=== PATIENT | female | born 1975 | race Caucasian/White ===

== ENCOUNTER 2019-01-27 10:28 | Emergency (ER) | payer OTHER ==
--- OUTSIDE RECORDS SUMMARY | 2019-01-27 10:30 | XMS REPORT | Summary of Care ---
:1975 Author Organization [facility] Cardiology [facility] Address [address] [place] [address]- Encounter HQ Godfreyr_luisa(FIN) [id number] Date(s): 10/25/18 - 10/25/18 [facility] [address] [place] [address]- [phone] Discharge Disposition: Home or Self Care Attending Physician: Andrzej Delarosa MD Vital Signs Most recent to oldest [Reference Range]: 1 Height 162.56 cm (10/25/18 4:10 PM) Blood Pressure [90-140/60-90 mmHg] 112/74 mmHg (10/25/18 4:10 PM) Weight 81.534 kg (10/25/18 4:10 PM) Body Mass Index 30.85 m2 (10/25/18 4:10 PM) Problem List Condition Effective Dates Status Health Status Informant Simple obesity(Confirmed) Active Allergies, Adverse Reactions, Alerts Substance Reaction Severity Status codeine Vomiting Severe Active Rash Medications carvedilol 3.125 mg, PO, BID Start Date: 10/25/18 Status: OrderedCo-Q10 30 mg, PO, Daily Start Date: 10/25/18 Status: OrderedFish Oil 1,000 mg, PO, Daily Start Date: 10/25/18 Status: Orderedfurosemide 40 mg, PO, Daily Start Date: 10/25/18 Status: Orderedhydrochlorothiazide-olmesartan 12.5 mg-20 mg oral tablet 0.5 tab, PO, Daily Start Date: 10/25/18 Status: Orderedlevothyroxine 75 microgram, PO, Daily Start Date: 10/25/18 Status: Orderedmagnesium oxide PO, Daily Start Date: 10/25/18 Status: OrderedmetFORMIN 1,000 mg, PO, Daily Start Date: 10/25/18 Status: Orderedomeprazole 20 mg, PO, Daily Start Date: 10/25/18 Status: OrderedRequip 4 mg, PO, Daily Start Date: 10/25/18 Status: OrderedSudafed 30 mg, PO, Daily Start Date: 10/25/18 Status: OrderedSynjardy XR 12.5 mg-1000 mg oral tablet, extended release 1 tab, PO, Daily Start Date: 10/25/18 Status: OrderedVitamin D3 1,000 IntlUnit, PO, Daily Start Date: 10/25/18 Status: OrderedZyrTEC 10 mg, PO, Daily Start Date: 10/25/18 Status: Ordered Results No data available for this section Immunizations No data available for this section Procedures Procedure Date Related Diagnosis Body Site Status Echocardiogram 06/2017 Completed Stress testing using 2016 Completed pharmacologic-induced stress Social History Social History Type Response Substance Abuse Use: None. Exercise Exercise duration: 15. Exercise frequency: 1-2 times/week. Alcohol Current, Type Liquor. Frequency: 1-2 times per week. Smoking Status Never smoker; Exposure to Tobacco Smoke None; Cigarette Smoking Last 365 Days No; Reg Smoking Cessation Counseling No entered on: 10/25/18 Assessment and Plan No data available for this section
--- OUTSIDE RECORDS SUMMARY | 2019-01-27 10:30 | XMS REPORT | Summary of Care ---
:1975 Author Organization [facility] Address [address] [place] [address]- Encounter HQ Encntr_luisa(FIN) [id number] Date(s): 01/02/19 - 01/02/[address] Professional Services provided by [facility] [place] [address]- Discharge Disposition: Home or Self Care Attending Physician: Andrzej Delarosa MD Referring Physician: Andrzej Delarosa MD Vital Signs Most recent to oldest [Reference Range]: 1 2 Height 165.1 cm (01/02/19 1:31 PM) Blood Pressure [90-140/60-90 mmHg] 91/56 mmHg 99/71 mmHg (01/02/19 2:26 PM) (01/02/19 2:00 PM) Respiratory Rate [14-20 BRMIN] 18 BRMIN 16 BRMIN (01/02/19 2:26 PM) (01/02/19 2:00 PM) Peripheral Pulse Rate [60-100 bpm] 85 bpm 82 bpm (01/02/19 2:26 PM) (01/02/19 2:00 PM) Weight 79.545 kg (01/02/19 1:31 PM) Body Mass Index 29.18 m2 (01/02/19 1:31 PM) Problem List Condition Effective Dates Status Health Status Informant Cardiomyopathy(Confirmed) Active Allergies, Adverse Reactions, Alerts Substance Reaction Severity Status codeine Vomiting Severe Active Rash Medications No data available for this section Results Most recent to oldest [Reference Range]: 1 eGFR 78 mL/min/1.73m2 1 *NA* (01/02/19 1:56 PM) POC Creatinine [0.5-1.4 mg/dL] 0.9 mg/dL (01/02/19 1:56 PM) 1Result Comment: The eGFR is calculated using the CKD-EPI formula. In most young , healthy individualsthe eGFR will be >90 mL/min/1.73m2. The eGFR declines with age. An eGFR of 60-89 may be normal insome populations, particularly the elderly, for whom the CKD-EPI formula has not been extensively validated. Use of the eGFR is not recommended in the following populations: Individuals with unstable creatinine concentrations, including patients and those with serious co-morbid conditions. Patients with extremes in muscle mass or diet. The data above are obtained from the National Kidney Disease Education Program ( NKDEP) which additionally recommends that when the eGFR is used in patients with extremes of body mass index for purposesof drug dosing, the eGFR should be multiplied by the estimated BMI. Immunizations No data available for this section Procedures Procedure Date Related Diagnosis Body Site Status Echocardiogram 06/2017 Completed Stress testing using 2016 Completed pharmacologic-induced stress Social History Social History Type Response Alcohol Current, Type Liquor. Frequency: 1-2 times per week. Exercise Exercise duration: 15. Exercise frequency: 1-2 times/week. Substance Abuse Use: None. Smoking Status Never smoker; Exposure to Tobacco Smoke None; Cigarette Smoking Last 365 Days No; Reg Smoking Cessation Counseling No entered on: 12/18/18 Assessment and Plan No data available for this section
--- OUTSIDE RECORDS SUMMARY | 2019-01-27 10:30 | XMS REPORT | Summary of Care ---
:1975 Author Organization [facility] Cardiology [facility] Address [address], [address] [place] [address]- Encounter HQ Encntr_alias(FIN) [id number] Date(s): 10/25/18 - 10/25/18 [facility] [address] [place] [address]- [phone] Attending Physician: Andrzej Delarosa MD Vital Signs No data available for this section Problem List Condition Effective Dates Status Health Status Informant Simple obesity(Confirmed) Active Allergies, Adverse Reactions, Alerts Substance Reaction Severity Status codeine Vomiting Severe Active Rash Medications No data available for this section Results No data available for this section [...]
--- OUTSIDE RECORDS SUMMARY | 2019-01-27 10:30 | XMS REPORT | Continuity of Care Document ---
:1975 Author Organization [facility] Care Team Providers Name Role Phone [facility] Unavailable Unavailable Problems Problem Status Onset Classification Date Comments Source Date Reported CARDIOMYPATHY Active 12/26/[address] R79.89 - OTHER Active 10/31/19 [facility] SPECIFIED ABNORMAL [facility] FINDI Simple obesity Active Problem 12/13/2018 [facility], [facility] Cardiomyopathy Active Problem 01/04/2019 [facility] Medications Medication Details Route Status Patient Ordering Order Source Instructions Provider Date carvedilol 3.125 mg, Active PO, BID [facility] Furosemide 40 mg, Active PO, Daily 019 [facility] Magnesium Oxide PO, Daily Active 019 [facility] Vitamin D3 1,000 Active IntlUnit, 019 Medical PO, Daily Group Co-Q10 30 mg, Active PO, Daily 019 [facility] Fish Oil 1,000 mg, Active PO, Daily 019 [facility] Zyrtec 10 mg, Active PO, Daily 019 [facility] Sudafed 30 mg, Active PO, Daily 019 [facility] Omeprazole 20 mg, Active PO, Daily 019 [facility] Metformin 1,000 mg, Active PO, Daily 019 [facility] Hydrochlorothiazide 0.5 tab, Active 12.5 MG / Olmesartan PO, Daily 019 Medical medoxomil 20 MG Oral Group Tablet 24 HR empagliflozin 1 tab, Active 12.5 MG / Metformin PO, Daily 019 Medical hydrochloride 1000 MG Group Extended Release Oral Tablet [Synjardy] Thyroxine 75 Active microgram 019 Medical , PO, Group Daily Requip 4 mg, PO, Active Daily 019 [facility] Allergies, Adverse Reactions, Alerts Substance Category Reaction Severity Reaction Status Date Comments Source type Reported codeine Assertion Vomiting, Severe Drug Active [facility] Rash allergy [facility] Immunizations No Data Provided for This Section Results Order Results Value Reference Date Interpretation Comments Source Name Range CHEM POC 0.9 0.5 - 1.4 01/02/ [facility] PANEL Creatinine 2019 [facility] CHEM eGFR 78 01/02/ Result [facility] 2019 Comment: The Medical eGFR is Center calculated using the CKD-EPI formula. In most young, healthy individuals the eGFR will be >90 mL/min/1.73m2. The eGFR declines with age. An eGFR of 60-89 may be normal in some populations, particularly the elderly, for whom the CKD-EPI formula has not been extensively validated. Use of the eGFR is not recommended in the following populations:<b r/>
Indivi duals with unstable creatinine concentrations , including patients and those with serious co-morbid conditions.

Patient s with extremes in muscle mass or diet.

The data above are obtained from the National Kidney Disease Education Program (NKDEP) which additionally recommends that when the eGFR is used in patients with extremes of body mass index for purposes of drug dosing, the eGFR should be multiplied by the estimated BMI. Pathology Reports No Data Provided for This Section Diagnostic Reports Report Value Date Source Heart/coronary EXAM: CTA HEART WITH CONTRAST 01/02/2019 [facility] art/graft w contrast DATE: 01/02/2019 13:30 CDT Center CTA INDICATION: - Cardiomyopathy, unspecified. 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 COMPARISON: None TECHNIQUE: Contrast-enhanced CT of the coronary arteries was obtained with retrospective electrocardiogram gating. Images were reformatted at 0.5 mm intervals and sent to the [employer] workstation for interpretation of both systolic and diastolic phases. Contrast: 85 mL of Omnipaque 350 DLP: 574 mGy-cm Study quality: Good FINDINGS: Coronary Arteries: This patient has a right dominant system, with normal origins of the coronary arteries. Left Main coronary artery: No atherosclerotic disease or significant stenosis. Left anterior descending artery: No atherosclerotic disease or significant stenosis. Diagonal branches: No atherosclerotic disease or significant stenosis. Left circumflex artery: No atherosclerotic disease or significant stenosis. Obtuse marginal branches: No atherosclerotic disease or significant stenosis. Right coronary artery: No atherosclerotic disease or significant stenosis. PDA: No atherosclerotic disease or significant stenosis. Ramus intermedius: Absent Coronary Artery Calcium Scoring: LAD: 0 LCx: 0 RCA: 0 Total [place] Coronary Calcium Score: 0 Coronary Artery Calcium Scoring: Total [place] Coronary Calcium Score: 0 Negative: 0 Minimal Risk: 1-10 Mild Risk: 11-100 Moderate Risk: 101-400 Severe Risk: >400 Cardiac findings: Pacemaker: None Artificial valve: None; Location: N/A Intracardiac closure device: None Other findings: Scattered pericardial calcifications are noted. A partially calcified anterior mediastinal lymph node is seen. Postoperative changes related to wedge resection in the right lower lobe are noted. IMPRESSION: 1. Normal origins of the right and left coronary arteries. No significant atherosclerotic disease or stenosis of the coronary vessels. 2. Total [place] coronary calcium score: 0 3. Postoperative changes related to wedge resection of the right lower lobe. Abdomen complete US EXAM: US ABDOMEN COMPLETE 11/02/2018 [facility] DATE: 11/02/2018 7:02 CDT INDICATION: - R79.89 Other specified abnormal findings of blood chemistry COMPARISON: None. TECHNIQUE: Multiplanar grayscale and color Doppler ultrasound images of the abdomen. FINDINGS: Liver: Craniocaudal length: 15.4 cm. Normal. Echogenicity: Increased Mass (size and location): None. Portal vein: Normal. Bile ducts: Common bile duct diameter: 4 mm. Intrahepatic ducts: Normal. Gallbladder: Gallstones: None. Gallbladder sludge: None. Gallbladder wall: 2 mm. Normal. Pericholecystic fluid: None. Sonographic Siddiqui sign: Absent. Pancreas: Head and uncinate process: Normal. Body and tail: Not seen. Spleen: Craniocaudal length: 9.9 cm. Normal. Mass or focal lesion (size and location): None. Right kidney: Hydronephrosis: None. Size: 11.3 x 4.5 x 4.5 cm. Normal. Echogenicity: Normal. Mass/Stone/Cyst (size and location): None. Left kidney: Hydronephrosis: None. Size: 12.3 x 4.6 x 5.4 cm. Normal. Echogenicity: Normal. Mass/Stone/Cyst (size and location): None. Abdominal aorta and IVC: Visualized portions are normal. Ascites: None. IMPRESSION: Fatty change liver. Consultation Notes No Data Provided for This Section Discharge Summaries No Data Provided for This Section History and Physicals No Data Provided for This Section Vital Signs Vital Sign Value Date Comments Source Systolic (mm Hg) 91 01/02/2019 [facility] Diastolic (mm Hg) 56 01/02/2019 [facility] Heart Rate 85 01/02/2019 [facility] Respitory Rate 18 01/02/2019 [facility] Heart Rate 82 01/02/2019 [facility] Respitory Rate 16 01/02/2019 [facility] Systolic (mm Hg) 99 01/02/2019 [facility] Diastolic (mm Hg) 71 01/02/2019 [facility] Height 165.1 cm 01/02/2019 [facility] Weight 79.545 01/02/2019 [facility] BMI Calculated 29.18 01/02/2019 [facility] BMI Calculated 30.85 10/25/2018 [facility] Weight 81.534 10/25/2018 [facility] Height 162.56 cm 10/25/2018 [facility] Systolic (mm Hg) 112 10/25/2018 [facility] Diastolic (mm Hg) 74 10/25/2018 [facility] Encounters Location Location Encounter Encounter Reason Attending ADM DC Status Source Details Type Number For Provider Date Date Visit [facility] Ambulatory [id number] Andrzej 10/25 10/25 Cardiology Pre-Reg 0 [facility] Outpatient [id number] Andrzej 10/25 10/26 Cardiology 1 Dona III [facility] Outpt Diag [id number] [facility] 11/02 11/03 [facility] 0 [facility] Outpatient [id number] 12/11 [facility] 2 -VISIT [place] CARDIOVASCU LAR LAB [facility] Outpatient [id number] Andrzej 12/11 12/12 Cardiology 2 Dona III [facility] Outpatient [id number] Andrzej 12/18 [facility] 3 Dona [facility] Outpatient [id number] Andrzej 12/18 12/19 Cardiology 3 Dona III [facility] Outpatient [id number] Andrzej 01/02 01/03 [facility] 0 Dona [facility] Procedures Procedure Code Date Perfomer Comments Source Echocardiogram [id number] 06/09/2017 Medical Group,[facility], [facility] Stress testing using [id number] 05/09/2015 [facility], d stress [facility], [facility] Assessment and Plan No Data Provided for This Section Plan of Care No Data Provided for This Section Social History Social History Date Source Social History TypeResponse 10/25/2018 [facility] Substance Abuse Use: None. Exercise Exercise duration: 15. Exercise frequency: 1-2 times/week. Alcohol Current, Type Liquor. Frequency: 1-2 times per week. Smoking Status Never smoker; Exposure to Tobacco Smoke None; Cigarette Smoking Last 365 Days No; Reg Smoking Cessation Counseling No entered on: 10/25/18 Social History TypeResponse 10/25/2018 [facility] Alcohol Current, Type Liquor. Frequency: 1-2 times per week. Exercise Exercise duration: 15. Exercise frequency: 1-2 times/week. Substance Abuse Use: None. Smoking Status Never smoker; Exposure to Tobacco Smoke None; Cigarette Smoking Last 365 Days No; Reg Smoking Cessation Counseling No entered on: 12/18/18 Social History TypeResponse 10/25/2018 [facility] Alcohol Current, Type Liquor. Frequency: 1-2 times per week. Exercise Exercise duration: 15. Exercise frequency: 1-2 times/week. Substance Abuse Use: None. Smoking Status Never smoker; Exposure to Tobacco Smoke None; Cigarette Smoking Last 365 Days No; Reg Smoking Cessation Counseling No entered on: 12/18/18 Family History No Data Provided for This Section Advance Directives No Data Provided for This Section Functional Status No Data Provided for This Section
--- OUTSIDE RECORDS SUMMARY | 2019-01-27 10:30 | XMS REPORT | Summary of Care ---
:1975 Author Organization [facility] Cardiology [facility] Address [address], [address] [place] [address]- Encounter HQ Encntr_alisharlene(FIN) [id number] Date(s): 12/18/18 - 12/18/18 [facility] [address] [place], [place] [address]- [phone] Discharge Disposition: Home or Self Care Attending Physician: Andrzej Delarosa MD Vital Signs No data available for this section Problem List Condition Effective Dates Status Health Status Informant Cardiomyopathy(Confirmed) Active Allergies, Adverse Reactions, Alerts Substance Reaction Severity Status codeine Vomiting Severe Active Rash Medications No Known Medications Results No data available for this section [...]
--- OUTSIDE RECORDS SUMMARY | 2019-01-27 10:30 | XMS REPORT | Summary of Care ---
:1975 Author Organization [facility] Outpatient Imaging - [facility] Address [address] [place], [place] [address]- Encounter HQ Encntr_alisharlene(FIN) [id number] Date(s): 11/02/18 - 11/02/18 [facility] Outpatient Imaging - [facility] [address] [place] [address]. [place] [address]- Discharge Disposition: Home or Self Care Attending Physician: Giovanni Gleason MD Referring Physician: Giovanni Gleason MD Vital Signs No data available for [...]
--- OUTSIDE RECORDS SUMMARY | 2019-01-27 10:30 | XMS REPORT | Summary of Care ---
:1975 Author Organization [facility] Cardiology [facility] Address [address] [place] [address]- Encounter HQ Encntr_alias(FIN) [id number] Date(s): 12/11/18 - 12/11/18 [facility] Cardiology [facility] [address] [place], [place] [address]- [phone] Discharge Disposition: Home or Self Care Attending Physician: Andrzej Delarosa MD Vital Signs No data available for this section Problem List Condition Effective Dates Status Health Status Informant Cardiomyopathy(Confirmed) Active Simple obesity(Confirmed) Active Allergies, Adverse Reactions, Alerts [...]
--- OUTSIDE RECORDS SUMMARY | 2019-01-27 10:31 | XMS REPORT ---
:1975 Author Organization [facility] Address [address] [place] [address] Dr. Lerner [address] [place] [address] Care Team Providers Name Role Phone Unavailable Unavailable Unavailable Problems This patient has no known problems. Allergies, Adverse Reactions, Alerts This patient has no known allergies or adverse reactions. Medications This patient has no known medications. Encounters Start End Encounter Admission Attending Care Care Encounter Date/Time Date/Time Type Type Clinicians Facility Department ID 2019-01-02 2019-01-02 Outpatient [facility] CAR [id number] 13:24:00 13:24:00
--- OUTSIDE RECORDS SUMMARY | 2019-01-27 10:31 | XMS REPORT ---
:1975 Author Organization [employer] Care Team Providers Name Role Phone [facility]oroPreston Provider Role Unavailable Allergies, Adverse Reactions, Alerts Substance Reaction Event Type codeine Info Not Available Drug Allergy Problems Problem Type Condition Code Onset Dates Condition Status Problem HTN, goal below 130/80 I10 Active Problem Allergic rhinitis, unspecified J30.9 Active seasonality, unspecified trigger Problem Systolic congestive heart failure, I50.20 Active unspecified HF chronicity Problem Restless leg syndrome G25.81 Active Assessment Allergic rhinitis, unspecified J30.9 Active seasonality, unspecified trigger Problem Cervical high risk HPV (human R87.810 Active papillomavirus) test positive Assessment Systolic congestive heart failure, I50.20 Active unspecified HF chronicity Assessment Elevated LFTs R94.5 Active Problem Elevated alkaline phosphatase level R74.8 Active Problem GERD without esophagitis K21.9 Active Problem Elevated LFTs R94.5 Active Problem Acquired hypothyroidism E03.9 Active Problem Mixed hyperlipidemia E78.2 Active Assessment Acquired hypothyroidism E03.9 Active Assessment HTN, goal below 130/80 I10 Active Assessment Restless leg syndrome G25.81 Active Assessment GERD without esophagitis K21.9 Active Assessment Type 2 diabetes mellitus with other E11.69 Active specified complication, unspecified whether long-term insulin use Assessment Cervical high risk HPV (human R87.810 Active papillomavirus) test positive Assessment Mixed hyperlipidemia E78.2 Active Problem Type 2 diabetes mellitus with other E11.69 Active specified complication, unspecified whether long-term insulin use Assessment Elevated alkaline phosphatase level R74.8 Active Assessment Hodgkin lymphoma, unspecified C81.90 Active Hodgkin lymphoma type, unspecified body region Problem Hodgkin lymphoma, unspecified C81.90 Active Hodgkin lymphoma type, unspecified body region Medications Medication Code Code Instructions Start End Status Dosage System Date CoQ [facility] 58918433166 30 MG Orally Active 1 capsule Once a day with a meal Fish Oil ND 18928750579 1000 MG Orally Active 1 capsule Once a day Ropinirole HCl [facility] 40254034817 3 MG Orally August Active 1 tablet Once a day 2018 Tradjenta [facility] 40395353710 5 MG Orally August Active 1 tablet Once a day 2018 Requip [facility] [address]-64 4 MG Orally Active 1 tablet Once a day Sudafed [facility] 13351329619 30 MG Orally Active 1 tablet as Congestion every 6 hrs needed Carvedilol [facility] 07686534449 6.25 MG Orally Active 1 tablet Twice a day Furosemide [facility] 41990648680 40 MG Orally Active 1 tablet Once a day Omeprazole [facility] 65724961116 20 MG Orally Active 1 capsule Once a day Synjardy XR [facility] 01952834130 12.5-1000 MG August Active 1 tablet Orally Once a , with day 2018 2018 breakfast Zyrtec Allergy [facility] 18618937042 10 MG Orally Active 1 tablet Once a day Olmesartan [facility] 53920252551 20-12.5 MG Active 1 tablet Medoxomil-HCTZ Orally Once a day Levothyroxine [facility] 37814099209 75 MCG Orally Active 1 tablet on Sodium Once a day an empty stomach in the morning Results No Known Results Summary Purpose [employer] Submission
--- OUTSIDE RECORDS SUMMARY | 2019-01-27 10:31 | XMS REPORT ---
:1975 Author Organization eClinicalWorks Care Team Providers Name Role Phone SantoroPreston Provider Role Unavailable Allergies No Known Allergies Problems Problem Type Condition Code Onset Dates Condition Status Problem HTN, goal below 130/80 I10 Active Problem Allergic rhinitis, unspecified J30.9 Active seasonality, unspecified trigger Problem Systolic congestive heart failure, I50.20 Active unspecified HF chronicity Problem Type 2 diabetes mellitus with other E11.69 Active specified complication, unspecified whether senior living insulin use Problem Hodgkin lymphoma, unspecified C81.90 Active Hodgkin lymphoma type, unspecified body region Problem Restless leg syndrome G25.81 Active Problem Cervical high risk HPV (human R87.810 Active papillomavirus) test positive Problem Elevated alkaline phosphatase level R74.8 Active Problem GERD without esophagitis K21.9 Active Problem Elevated LFTs R94.5 Active Problem Acquired hypothyroidism E03.9 Active Problem Mixed hyperlipidemia E78.2 Active Medications Medication Code Code Instructions Start End Status Dosage System Date Date Accu-Chek [facility] [id number] - In Vitro once September 08, Active 1 strip to Guide daily fasting 2019 test blood glucose Results No Known Results Summary Purpose eClinicalWorks Submission
--- NOTE | 2019-01-27 11:29 | RAD REPORT ---
EXAM DESCRIPTION: RAD - Foot Left 3 View - 01/27/2019 11:15 am CLINICAL HISTORY: PAIN COMPARISON: <Comparisons> FINDINGS: Large plantar calcaneal spur. No acute fracture or dislocation.
[2019-01-27] MEDS ORDERED: IBUPROFEN 200 MG TAB PO ONE (11:31)
[2019-01-27] MEDS ORDERED: IBUPROFEN 400 MG TAB ONE (11:31)
--- NOTE | 2019-01-27 11:32 | ER ---
Nurse's Notes [facility] Name: Marlyn Stauffer Age: 43 yrs Sex: Female : 1975 Arrival Date: 01/27/2019 Time: 10:30 Bed 12 Private MD: Preston Santoro Diagnosis: Contusion of left foot Presentation: 01/27 10:36 Presenting complaint: Patient states: I dropped about a twenty pound object on to my la1 left foot about 30 minutes ago. Transition of care: patient was not received from another setting of care. Onset of symptoms was January 27, 2019. Risk Assessment: Do you want to hurt yourself or someone else? Patient reports no desire to harm self or others. Initial Sepsis Screen: Does the patient meet any 2 criteria? No. Patient's initial sepsis screen is negative. Does the patient have a suspected source of infection? No. Patient's initial sepsis screen is negative. Care prior to arrival: None. 10:36 Method Of Arrival: Wheelchair la1 10:36 Acuity: HEAVEN 4 la1 Historical: - Allergies: 10:34 Codeine; la1 - PMHx: 10:34 Diabetes - NIDDM; CHF; Hypothyroidism; la1 - Immunization history:: Adult Immunizations up to date. - Social history:: Smoking status: Patient/guardian denies using tobacco. - Ebola Screening: : No symptoms or risks identified at this time. Screenin:40 Abuse screen: Denies threats or abuse. Nutritional screening: No deficits noted. la1 Tuberculosis screening: No symptoms or risk factors identified. Fall Risk None identified. Assessment: 10:39 General: Appears in no apparent distress. Behavior is calm, cooperative. Pain: la1 Complains of pain in dorsum of left foot. Neuro: Level of Consciousness is awake, alert, obeys commands. Cardiovascular: Patient's skin is warm and dry. Musculoskeletal: Circulation, motion, and sensation intact. Capillary refill < 3 seconds, is brisk, in bilateral toes. Range of motion: intact in all extremities, bruising and abrasion to dorsum of left foot. Vital Signs: 10:34 BP 116 / 95; Pulse 97; Resp 16; Temp 97.4; Pulse Ox 98% on R/A; Weight 79.38 kg; Height la1 5 ft. 5 in. (165.10 cm); 10:34 Body Mass Index 29.12 (79.38 kg, 165.10 cm) la1 ED Course: 10:30 Patient arrived in ED. as 10:31 Preston Santoro DO is Private Physician. as 10:31 Amy Webber FNP-C is [facility]. kb 10:31 Zee Rubio MD is Attending Physician. kb 10:33 Arm band placed on left wrist. la1 10:36 Triage completed. la1 10:39 Rayo Feliciano, RN is Primary Nurse. la1 10:40 Patient has correct armband on for positive identification. la1 10:40 No provider procedures requiring assistance completed. Patient did not have IV access la1 during this emergency room visit. 11:16 Foot Left 3 View XRAY In Process Unspecified. EDMS Administered Medications: 11:36 Drug: Ibuprofen 600 mg Route: PO; la1 11:36 Follow up: Response: No adverse reaction; Medication administered at discharge. la1 11:36 Drug: traMADol 50 mg {Note: r.} Route: PO; la1 11:36 Follow up: Response: Medication administered at discharge. la1 Outcome: 11:31 Discharge ordered by MD. kb 11:36 Discharged to home ambulatory. la1 11:36 Condition: improved 11:36 Discharge instructions given to patient, Instructed on discharge instructions, follow up and referral plans. Demonstrated understanding of instructions, follow-up care. 11:48 Patient left the ED. em Signatures: Dispatcher [employer] EDMS Amy Webber FNP-C FNP-Prashanth Henry, SCRIPT SUPERVISOR SCRIPT SUPERVISOR em Mallory Conner as Rayo Feliciano, RN RN la1
--- NOTE | 2019-01-27 11:32 | EDPHYS ---
Physician Documentation [facility] Name: Marlyn Stauffer Age: 43 yrs Sex: Female : 1975 Arrival Date: 01/27/2019 Time: 10:30 Bed 12 Private MD: [facility] ED Physician Zee Rubio HPI: 01/27 11:27 This 43 yrs old Female presents to ER via Wheelchair with complaints of Foot kb Injury. 11:28 The patient presents with an abrasion, a contusion, an injury, pain, swelling, kb tenderness. The complaints affect the dorsum of left foot. Context: The problem was sustained at home, resulted from dropped something heavy on top of foot, the patient can partially bear weight, the patient is able to ambulate. Onset: The symptoms/episode began/occurred just prior to arrival. Modifying factors: The symptoms are alleviated by nothing, the symptoms are aggravated by weight bearing, movement. Associated signs and symptoms: Pertinent positives: swelling. Severity of symptoms: At their worst the symptoms were moderate, in the emergency department the symptoms are unchanged. The patient has not experienced similar symptoms in the past. The patient has not recently seen a physician. Historical: - Allergies: 10:34 Codeine; la1 - PMHx: 10:34 Diabetes - NIDDM; CHF; Hypothyroidism; la1 - Immunization history:: Adult Immunizations up to date. - Social history:: Smoking status: Patient/guardian denies using tobacco. - Ebola Screening: : No symptoms or risks identified at this time. ROS: 11:26 Constitutional: Negative for fever, chills, and weight loss, Neck: Negative for injury, kb pain, and swelling, Cardiovascular: Negative for chest pain, palpitations, and edema, Respiratory: Negative for shortness of breath, cough, wheezing, and pleuritic chest pain, Abdomen/GI: Negative for abdominal pain, nausea, vomiting, diarrhea, and constipation, Neuro: Negative for headache, weakness, numbness, tingling, and seizure. 11:26 MS/extremity: Positive for abrasion, contusion, pain, swelling, tenderness. Exam: 11:25 Constitutional: This is a well developed, well nourished patient who is awake, alert, kb and in no acute distress. Head/Face: Normocephalic, atraumatic. Chest/axilla: Normal chest wall appearance and motion. Nontender with no deformity. No lesions are appreciated. Cardiovascular: Regular rate and rhythm with a normal S1 and S2. No gallops, murmurs, or rubs. Normal PMI, no JVD. No pulse deficits. Respiratory: Lungs have equal breath sounds bilaterally, clear to auscultation and percussion. No rales, rhonchi or wheezes noted. No increased work of breathing, no retractions or nasal flaring. Abdomen/GI: Soft, non-tender, with normal bowel sounds. No distension or tympany. No guarding or rebound. No evidence of tenderness throughout. Neuro: Awake and alert, GCS 15, oriented to person, place, time, and situation. Cranial nerves II-XII grossly intact. Motor strength 5/5 in all extremities. Sensory grossly intact. Cerebellar exam normal. Normal gait. 11:25 Musculoskeletal/extremity: Extremities: grossly normal except: noted in the dorsum of left foot: abrasion, contusion, pain, swelling, tenderness, ROM: intact in all extremities, Circulation is intact in all extremities. Sensation intact. Weight bearing: can bear weight with assistance only. Vital Signs: 10:34 BP 116 / 95; Pulse 97; Resp 16; Temp 97.4; Pulse Ox 98% on R/A; Weight 79.38 kg; Height la1 5 ft. 5 in. (165.10 cm); 10:34 Body Mass Index 29.12 (79.38 kg, 165.10 cm) la1 MDM: 10:37 Patient medically screened. kb 11:25 Data reviewed: vital signs, nurses notes. Data interpreted: Pulse oximetry: on room air kb is 98 %. Interpretation: normal. 11:31 Counseling: I had a detailed discussion with the patient and/or guardian regarding: the kb historical points, exam findings, and any diagnostic results supporting the discharge/admit diagnosis, radiology results, the need for outpatient follow up, a orthopedic surgeon, to return to the emergency department if symptoms worsen or persist or if there are any questions or concerns that arise at home. 01/27 10:38 Order name: Foot Left 3 View XRAY; Complete Time: 11:31 kb Administered Medications: 11:36 Drug: Ibuprofen 600 mg Route: PO; la1 11:36 Follow up: Response: No adverse reaction; Medication administered at discharge. la1 11:36 Drug: traMADol 50 mg {Note: r.} Route: PO; mt1 11:36 Follow up: Response: Medication administered at discharge. la1 Disposition: 01/28 07:09 Co-signature as Attending Physician, Zee Rubio MD. [email or web address] Disposition: 01/27/19 11:31 Discharged to Home. Impression: Contusion of left foot. - Condition is Stable. - Discharge Instructions: Foot Contusion, [id number]. - Medication Reconciliation Form, Thank You Letter, Antibiotic Education, Prescription Opioid Use form. - Follow up: Emergency Department; When: As needed; Reason: Worsening of condition. Follow up: Private Physician; When: 2 - 3 days; Reason: Recheck today's complaints, Continuance of care, Re-evaluation by your physician. Signatures: Dispatcher [employer] EDAmy Vaughn, ILYA-C VOLUNTEER SERVICES ASSISTANT-Prashanth Henry, COMMUNICATIONS DESIGNER COMMUNICATIONS DESIGNER em Rayo Feliciano RN RN [facility] Zee Rubio MD MD sd2 Corrections: (The following items were deleted from the chart) 01/27 11:48 11:31 01/27/2019 11:31 Discharged to Home. Impression: Contusion of left foot. em Condition is Stable. Forms are Medication Reconciliation Form, Thank You Letter, Antibiotic Education, Prescription Opioid Use. Follow up: Emergency Department; When: As needed; Reason: Worsening of condition. Follow up: Private Physician; When: 2 - 3 days; Reason: Recheck today's complaints, Continuance of care, Re-evaluation by your physician. kb
[2019-01-27] MEDS ORDERED: TRAMADOL HCL 50 MG TAB ONE (11:33)
[2019-01-27 11:59] VITALS: BP 116/95; TEMP 97.4; O2SAT 98
== END 2019-01-27 11:48 | disposition home or self-care (01) ==
LOC: ER 10:28
DX: S90.32XA Contusion of left foot, initial encounter (principal); W20.8XXA Other cause of strike by thrown, projected or falling object, initial encounter; Y93.9 Activity, unspecified; Y92.9 Unspecified place or not applicable; Z88.6 Allergy status to analgesic agent
CPT/HCPCS: 99283